=== PATIENT | female | born 1995 | race Caucasian/White ===

== ENCOUNTER 2020-12-23 03:15 | Observation (INO) | payer OTHER ==
[~2020-12-23] VITALS: Ht 167.6 cm; Wt 79.8 kg
[2020-12-23 03:25] VITALS: BP 114/66
--- NOTE | 2020-12-23 09:01 | NUR ---
PATIENT HAS BEEN SCREENED AND CATEGORIZED LOW NUTRITION RISK. PATIENT WILL BE SEEN WITHIN 7 DAYS OF ADMISSION. 12/29/[address]
[2020-12-23] MEDS ORDERED: LACTATED RINGERS 500 ML IV SCH (11:59)
[2020-12-23] MEDS: LACTATED RINGERS 1,000 ML IV SCH ×2 (12:05→17:10)
[2020-12-23 15:56] LABS: BASOPHILS % (AUTO) 0.6 % (0.0-2.0); EOSINOPHILS # (AUTO) 0.2 K/uL (0-0.4); EOSINOPHILS % (AUTO) 2.8 % (0.0-4.0); HEMATOCRIT 36.4 % (36-48); HEMOGLOBIN 12.1 g/dL (12.0-16.0); LYMPHOCYTES % (AUTO) 26.6 % (20.5-51.1); MEAN CORPUSCULAR HEMOGLOBIN 31 pg (27-31); MEAN CORPUSCULAR HGB CONC 33 g/dL (33-37); MONOCYTES # (AUTO) 0.6 K/uL (0.8-1.0); MONOCYTES % (AUTO) 7.6 % (1.7-9.3); NEUTROPHILS # (AUTO) 4.6 K/uL (1.8-7.7); NEUTROPHILS % (AUTO) 62.4 % (42.2-75.2); PLATELET COUNT (AUTO) 299 K/uL (140-450); RED BLOOD CELL COUNT(AUTO) 3.96 MIL/uL (4.20-5.40); RED CELL DISTRIBUTION WIDTH 14.1 % (11.6-13.7); WHITE BLOOD COUNT (AUTO) 7.4 K/uL (4.8-10.8)
[2020-12-23 15:57] LABS: APPEARANCE,URINE HAZY (CLEAR); BILIRUBIN,URINE NEGATIVE (NEGATIVE); BLOOD, URINE NEGATIVE (NEGATIVE); COLOR,URINE YELLOW (YELLOW); LEUKOCYTE ESTERASE ,URINE 2+ (NEGATIVE); NITRITE, URINE NEGATIVE (NEGATIVE); UGLUCOSE NEGATIVE (NEGATIVE)
[2020-12-23 16:02] LABS: RBC,URINE 0-5 /HPF (0-5); WBC,URINE 16-25 (MOD) /HPF (0-5)
[2020-12-23 16:19] LABS: ALBUMIN 2.2 g/dL (3.4-5.0); CARBON DIOXIDE 22.7 mmol/L (21-32); CREATININE 0.5 mg/dL (0.6-1.3); MAGNESIUM 1.7 mg/dL (1.8-2.4); POTASSIUM 3.7 mmol/L (3.5-5.1); THYROID STIMULATING HORMONE 1.33 uIU/mL (0.34-3.74); TOTAL BILIRUBIN 0.3 mg/dL (0.0-1.0)
[2020-12-23] MEDS: NACL 0.9% 1,000 ML IV SCH (17:52)
[2020-12-24] MEDS: NACL 0.9% 1,000 ML IV SCH ×2 (01:27→10:26)
== END 2020-12-24 18:47 | disposition home or self-care (01) ==
LOC: MLD 03:15
PROVIDERS: ADMIT Obstetrics & Gynecology; ATTEND Obstetrics & Gynecology
DX: O26.893 Other specified pregnancy related conditions, third trimester (principal); R55 Syncope and collapse; Z3A.36 36 weeks gestation of pregnancy; Z79.899 Other long term (current) drug therapy
CPT/HCPCS: 36415; 59025; 80053; 81001; 83735; 84443; 84484; 85025; 87086; 93005; 96361; 96365; G0378; J0696; J7060

== ENCOUNTER 2021-01-08 18:55 | Inpatient (IN) | payer OTHER, SELFPAY ==
[~2021-01-08] VITALS: Ht 165.1 cm; Wt 79.8 kg
[2021-01-08] MEDS: LACTATED RINGERS 1,000 ML IV SCH (06:05)
[2021-01-08 22:05] LABS: BASOPHILS % (AUTO) 0.2 % (0.0-2.0); EOSINOPHILS # (AUTO) 0.2 K/uL (0-0.4); EOSINOPHILS % (AUTO) 2.6 % (0.0-4.0); HEMATOCRIT 37.5 % (36-48); HEMOGLOBIN 12.3 g/dL (12.0-16.0); LYMPHOCYTES # (AUTO) 2.3 K/uL (2.5-16.5); LYMPHOCYTES % (AUTO) 25.6 % (20.5-51.1); MEAN CORPUSCULAR HEMOGLOBIN 30 pg (27-31); MEAN CORPUSCULAR HGB CONC 33 g/dL (33-37); MEAN CORPUSCULAR VOLUME 91.3 fL (80-94); MONOCYTES # (AUTO) 0.8 K/uL (0.8-1.0); MONOCYTES % (AUTO) 8.7 % (1.7-9.3); NEUTROPHILS # (AUTO) 5.7 K/uL (1.8-7.7); NEUTROPHILS % (AUTO) 62.9 % (42.2-75.2); PLATELET COUNT (AUTO) 303 K/uL (140-450); RED BLOOD CELL COUNT(AUTO) 4.11 MIL/uL (4.20-5.40); RED CELL DISTRIBUTION WIDTH 13.8 % (11.6-13.7)
[2021-01-08 22:08] LABS: APPEARANCE,URINE CLEAR (CLEAR); BILIRUBIN,URINE NEGATIVE (NEGATIVE); BLOOD, URINE NEGATIVE (NEGATIVE); COLOR,URINE YELLOW (YELLOW); LEUKOCYTE ESTERASE ,URINE NEGATIVE (NEGATIVE); NITRITE, URINE NEGATIVE (NEGATIVE); UGLUCOSE NEGATIVE (NEGATIVE)
[2021-01-08 22:21] LABS: ALBUMIN 2.4 g/dL (3.4-5.0); CARBON DIOXIDE 21.5 mmol/L (21-32); CREATININE 0.5 mg/dL (0.6-1.3); POTASSIUM 3.5 mmol/L (3.5-5.1); TOTAL BILIRUBIN 0.3 mg/dL (0.0-1.0)
[2021-01-09 01:47] VITALS: BP 118/69
[2021-01-09] MEDS: LACTATED RINGERS 1,000 ML IV SCH ×3 (06:38→22:30)
--- NOTE | 2021-01-09 08:48 | NUR ---
PATIENT HAS BEEN SCREENED AND CATEGORIZED LOW NUTRITION RISK. PATIENT WILL BE SEEN WITHIN 7 DAYS OF ADMISSION. 01/15/[address]
[2021-01-09] MEDS: MISOPROSTOL 25 MCG TAB VG PRN (11:20)
[2021-01-09] MEDS ORDERED: CARBOPROST 250 MCG/ML AMP IM PRN (11:20)
[2021-01-09] MEDS ORDERED: METHYLERGONOVINE 0.2 MG/ML AMP IM PRN (11:20)
[2021-01-09 14:23] LABS: BARBITURATE, URINE NEGATIVE ng/ml (NEG <=200); BENZODIAZEPINE, URINE NEGATIVE ng/mL (NEG <=200); CANNABINOID, URINE NEGATIVE ng/mL (NEG <=50); COCAINE, URINE NEGATIVE ng/mL (NEG <=300); OPIATE, URINE NEGATIVE ng/mL (NEG <=2000); PHENCYCLIDINE SCREEN,URINE NEGATIVE ng/mL (NEG <=25)
[2021-01-10] MEDS: MISOPROSTOL 25 MCG TAB VG PRN (00:41)
[2021-01-10] MEDS: LACTATED RINGERS 1,000 ML IV SCH ×2 (06:38→11:00)
[2021-01-10] MEDS ORDERED: fentaNYL citrate 0.05 MG/ML VIAL ONE (10:31)
[2021-01-10] MEDS ORDERED: ROPIVACAINE 0.2%/NS PREMIX 200 ML EPI ONE (10:31)
[2021-01-10] MEDS ORDERED: OXYTOCIN 20 UNITS/LR PREMIX 1,000 ML IV ONE (11:23)
[2021-01-10] MEDS ORDERED: METHYLERGONOVINE 0.2 MG/ML AMP IM PRN (15:55)
[2021-01-10] MEDS ORDERED: MEASLES, MUMPS, AND RUBELLA 1 VIAL SQVAC ONE (15:55)
[2021-01-10] MEDS ORDERED: OXYTOCIN 10 UNITS/ML VIAL IM PRN (15:55)
[2021-01-10] MEDS ORDERED: IBUPROFEN 800 MG TAB PO PRN (15:55)
[2021-01-10] MEDS ORDERED: oxyCODONE/APAP 5/325 MG 1 TAB TAB PO PRN (15:55)
[2021-01-10] MEDS ORDERED: METHYLERGONOVINE 0.2 MG TAB PO PRN (15:55)
[2021-01-10] MEDS ORDERED: BENZOCAINE/MENTHOL 20%-0.5% 60 GM CAN TP PRN (15:55)
[2021-01-10] MEDS ORDERED: IBUPROFEN 600 MG TAB PO PRN (15:55)
[2021-01-10] MEDS: IBUPROFEN 800 MG TAB PO PRN (23:34)
[2021-01-11 06:12] LABS: HEMATOCRIT 34.1 % (36-48); HEMOGLOBIN 11.6 g/dL (12.0-16.0)
[2021-01-11] MEDS: IBUPROFEN 800 MG TAB PO PRN (18:09)
== END 2021-01-12 13:26 | disposition home or self-care (01) | DRG 560 ==
LOC: MLD 18:55 → MFCC 01-09 10:10 → OBSVTOIN 01-09 10:20 → MFCC 01-10 18:45
PROVIDERS: ADMIT Obstetrics & Gynecology; ATTEND Obstetrics & Gynecology
PROC: 10E0XZZ Delivery of Products of Conception, External Approach (ICD-10-PCS; principal; 2021-01-10)
PROC: 0UQMXZZ Repair Vulva, External Approach (ICD-10-PCS; 2021-01-10)
PROC: 3E0R3BZ Introduction of Anesthetic Agent into Spinal Canal, Percutaneous Approach (ICD-10-PCS; 2021-01-10)
PROC: 00HU33Z Insertion of Infusion Device into Spinal Canal, Percutaneous Approach (ICD-10-PCS; 2021-01-10)
PROC: 3E0P7GC Introduction of Other Therapeutic Substance into Female Reproductive, Via Natural or Artificial Opening (ICD-10-PCS; 2021-01-10)
DX: O77.0 Labor and delivery complicated by meconium in amniotic fluid (principal); Z37.0 Single live birth; O70.0 First degree perineal laceration during delivery; O99.892 Other specified diseases and conditions complicating childbirth; R55 Syncope and collapse; Z3A.39 39 weeks gestation of pregnancy; Z82.49 Family history of ischemic heart disease and other diseases of the circulatory system; Z20.822 Contact with and (suspected) exposure to COVID-19
CPT/HCPCS: G0378 ×15; 36415; 59200; 59409; 76805; 80053; 80305; 81003; 85018; 85025; 86592; 86886; 86900; 86901; J2590; J2795; J3010; Q0092